=== PATIENT | male | born 1955 | race Caucasian/White ===

== ENCOUNTER 2016-05-24 15:29 | Emergency (ER) | payer MEDICAID, OTHER ==
[~2016-05-24] VITALS: Ht 190.5 cm; Wt 81.8 kg
[~2016-05-24 15:29] MED LIST: DULO30C PO; HYDR50CA PO; LACT1TAB10 PO; LORA-303 PO; MULT-1007 PO; NICO2GUM BC; PAN PO; SODI30SP2 NS; SYN.1T2 PO; [UNRECOGNIZED DRUG - CODE] PO; [UNRECOGNIZED DRUG - CODE] PO; [UNRECOGNIZED DRUG - CODE] TOP
[2016-05-24 15:32] VITALS: BP 120/71; PULSE 68; RESP 20; O2SAT 96
--- NOTE | 2016-05-24 15:44 | ED.REPORT ---
HPI-Psychiatric Illness Date of Service May 24, 2016 ED Provider: Obdulio Chew DO A homeless 60 year old male with a history of suicidal ideation, schizophrenia, hepatitis C, anxiety, alcohol abuse, and low potassium and frequent ED visits presents to the ED complaining of depression and suicidal ideation. The pt has been off of his antidepressants for one week. He ran out recently and "didn't get around to refilling it." The pt states that his depression has worsened significantly since he has been off of his antidepressants and "hasn't been functioning or taking care of himself." He is requesting hospitalization to stabilize his situation. The pt also mentions that he is concerned about his electrolytes due to abnormal heart rhythms. He denies chest pain. The pt has a multitude of ED visits this month between [facility] and other hospitals. He has been seen daily for the last three days for the same complaints and discharged in stable condition. The pt does not have a psychiatrist. Nursing Notes Stated Complaint: MENTAL HEALTH Chief Complaint: Psychiatric Complaint Nursing Notes Reviewed: Yes Allergies: Coded Allergies: Sulfa (Sulfonamide Antibiotics) (Verified Allergy, Severe, 03/20/16) Scheduled Ascorbic Acid (C-500) 500 Mg Tablet 500 MG PO DAILYWM Clotrimazole-Expunged Drug, Do Not Renew! (Lotrimin 1%-Expunged Drug, Do Not Renew!) 30 Ml Bottle 30 APPL TOP BID Duloxetine-Expunged Drug, Do Not Renew! (Cymbalta-Expunged Drug, Do Not Renew!) 30 Mg Capsule.dr 30 MG PO DAILY LACTO ACID-Expunged Drug, Do Not Renew! (ACIDOPHILUS-Expunged Drug, Do Not Renew !) 1 Each Tablet 1 EACH PO TIDWM Levothyroxine-Expunged Drug, Do Not Renew! (Synthroid-Expunged Drug, Do Not Renew!) 100 Mcg Tablet 0.1 MG PO DAILYAC 0.1 MG = 100 MCG Lipase/Amylase/Protease-Expunged, Do Not Tee (Pancrease-Expunged, Do Not Renew! ) 1 Ea Cap 1 EA PO BIDBL Lorazepam-Expunged Drug, Do Not Renew! (Lorazepam-Expunged Drug, Do Not Renew!) 1 Mg Tablet 1 MG PO Q4HP Multivitamin (Multi-Vitamin Daily) 1 Each Tablet 1 EACH PO DAILY NICOTINE POLAC-Expunged Drug, Do Not Renew! (NICOTINE POLAC-Expunged Drug, Do Not Renew!) 2 Mg Gum 2 MG BC PRN Scheduled PRN Hydroxyzine Kylie-Expunged Drug, Do Not Renew! (Vistaril-Expunged Drug, Do Not Renew!) 50 Mg Capsule 50 MG PO TID PRN PRN Loperamide-Expunged Drug, Do Not Renew! (Imodium-Expunged Drug, Do Not Renew!) 2 Mg Cap 2 MG PO UD PRN PRN Miscellaneous Medications Sodium Chloride-Expunged Drug, Do Not Renew! (Saline Nasal [place]-Expunged Drug, Do Not Tee) 45 Ml [place] 45 ML NS General Time Seen by MD: 15:44 Chief Complaint Suicidal ideation Hx Obtained From: Patient Arrived By: Ambulance Onset Occurred: More than a week ago... Symptom Duration: Since onset Recent Healthcare: Recent doctor visit, Recent hospitalization Similar Sx Previous: Yes Risk-Psychiatric Illness Suicide Risk Stratification Suicide Risk Factors - Adult: : Prior psych admissionNo: Substance abuse RF Statements: Risk factors reviewed Past Medical History Past Medical History depression with suicidal ideations - with prior hospitalizations generalized anxiety alcohol abuse duodenal ulcer schizophrenia low potassium arthritis hypothyroidism Reports: Mental illness Reports: Depression, Thyroid disease Past Surgical History ulcer repair Smoking History Current Every Day Smoker Social History Drug Use: Denies drug use Other Social History: Poor social support, Homeless Occupation [place] Ambulatory Status Independent Review of Systems Review of Systems Note: abnormal heart rate Constitutional: Denies: Fever Cardiovascular: Denies: Chest pain GI: Denies: Abdominal pain, Nausea Skin: Denies Rash Psychiatric: Reports: Depression, Suicidal ideation Complete sys rev & neg: except as marked. Physical Exam Initial Vital Signs Vital Signs (First) Date Time Temp Pulse Resp B/P Pulse Ox O2 Delivery O2 Flow Rate FiO2 05/24/16 15:32 36.4 68 20 120/71 96 Room Air Initial VS: Reviewed General/Constitutional: Awake, Alert Neurologic: Oriented X3, Speech NL, No motor deficits, No sensory deficits Psychiatric: Affect NL, Mood NL Head / Eyes: Atraumatic, Normocephalic, PERRL, EOMI ENT: Atraumatic, Airway patent, Mucous membranes moist Respiratory / Chest: Atraumatic, Breath sounds NL, Breath sounds = bilat, No respiratory distress Cardiovascular: Heart rate NL, Heart sounds NL occasional irregular beats Abdomen: Atraumatic, Soft, Non-tender no hepatomegaly Skin: Atraumatic, Color NL, No rash, Warm, Dry Neck: Atraumatic, Supple, Full range of motion Back: Atraumatic, Full range of motion Upper Extremity / MS: Atraumatic, Full range of motion Lower Extremity / Pelvis / MS: Atraumatic, Full range of motion Interpretation & Diagnostics Lab Results Interpretation Result Diagram: 05/24/16 1621 05/24/16 1621 Test 05/24/16 16:16 05/24/16 16:21 05/24/16 16:38 Hold Urine Received (Received) White Blood Count 5.5th/mm3 (3.8-10.1) Red Blood Count 5.05mil/mm3 (4.40-5.80) Hemoglobin 15.1g/dL (13.8-17.2) Hematocrit 43.0% (41.0-50.0) Mean Corpuscular Volume 85.1fL (81-100) Mean Corpuscular Hemoglobin 29.9pg (27.0-35.0) Mean Corpuscular Hemoglobin Concent 35.1% (32.0-37.0) Red Cell Distribution Width 12.5% (12.3-15.4) Platelet Count 185bil/L (150-400) Neutrophils (%) (Auto) 72.8% (40-74) Lymphocytes (%) (Auto) 16.7% (14-46) Monocytes (%) (Auto) 8.4% (4-12) Eosinophils (%) (Auto) 1.5% (0-5) Basophils (%) (Auto) 0.6% (0-3) Sodium Level 142mEq/L (134-144) Potassium Level 3.6mEq/L (3.5-5.2) Chloride Level 102mEq/L (97-108) Carbon Dioxide Level 22mmol/L (18-29) Blood Urea Nitrogen 13mg/dL (8-27) Creatinine 0.80mg/dL (0.76-1.27) Estimat Glomerular Filtration Rate 105mL/min (>59) Glucose Level 111mg/dL (60-99) Calcium Level 8.9mg/dL (8.5-10.1) Magnesium Level 2.2mg/dL (1.6-2.6) Total Bilirubin 1.9mg/dL (0.0-1.2) Aspartate Amino Transf (AST/SGOT) 27U/L (0-50) Alanine Aminotransferase (ALT/SGPT) 13U/L (0-44) Alkaline Phosphatase 66U/L (25-160) Troponin T < 0.010ug/L (0.0-0.011) Total Protein 7.4g/dL (6.4-8.4) Albumin 4.5g/dL (3.4-5.0) Hold Purple Top Tube Received (Received) Hold Blue Top Tube Received (Received) Hold [place] Top Tube Received (Received) Hold Ma Top Tube Received (Received) ECG Interpretation ECG Interpretation: normal sinus rhythm with a rate of 74 inv T wave in lead AVL and lead 1 no previous available for comparison Time: 18:19 Interpreted by: ED physician Re-Eval/Medical Decision Med Decision/Clinical Course 60-year-old male with a history of 48 ER visits in the past 12 months for suicidal ideation who was just evaluated at [facility] yesterday and discharged for malingering presents complaining of palpitations, joint pain from arthritis, and vague suicidal ideations. 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 He is known to malinger because he is homeless and wanting a place to stay. I reviewed his records with our dialysis social worker and we feel that he is fit for discharge. He has all the resources for crisis centers and he has a disability case manager who can help him. Patient is agreeable to this plan. Source of Hx: Old records Re-Evaluation/Progress : Time of Eval: 17:32 Patient Status: Condition improved Re-Evaluation/Progress Note: Pt rechecked, who is resting. Lab work, diagnosis, and the plan for discharge were discussed. The pt understands and agrees with the plan. All questions are addressed at this time. Counseled Regarding: Diagnosis, Need for follow-up, When/why to return to ED Discharge & Departure Impression: Primary Impression: Palpitations Additional Impressions: History of schizophrenia Homelessness Ruled Out: Acute coronary syndrome Disposition: AGAINST MEDICAL ADVICE Discharge Condition All VS Reviewed: Yes Condition: Stable Additional Instructions: You lab work and EKG today were reassuring. Contact your case packer and sealer and [facility] for psychiatric follow up. I am prescribing you a small supply of her antidepressant medicines he can get it started again. He will need to get another prescription from your psychiatrist/primary care provider to continue this medication Return to the emergency department if you develop any new or concerning symptoms. You may buy Tylenol [id number] for joint pain Referrals: [facility] (PCP) [facility] Jmibyolette Attestation Portions of this note were transcribed by Haseeb Coburn I, Dr. Chew personally performed the history, physical exam and medical decision-making; I reviewed and confirmed the accuracy of the information in the transcribed note. Signed by: Krystina Murrell, 05/24/16 and 17:34. copies to: [facility] ; [facility]; [facility] Obdulio Chew DO May 24, 2016 15:44 HASEEB COBURN May 24, 2016 16:58
[2016-05-24 16:30] LABS: BASOPHILS % (AUTO) 0.6 % (0-3); EOSINOPHILS % (AUTO) 1.5 % (0-5); MONOCYTES % (AUTO) 8.4 % (4-12); Mean Corpuscular Hemoglobin 29.9 pg (27.0-35.0); Mean Corpuscular Volume 85.1 fL (81-100); NEUTROPHILS % (AUTO) 72.8 % (40-74); Platelet Count 185 bil/L (150-400)
[2016-05-24 16:55] LABS: TROPONIN T < 0.010 ug/L (0.0-0.011)
[2016-05-24 17:04] LABS: Magnesium 2.2 mg/dL (1.6-2.6)
[2016-05-24] MEDS ORDERED: HYDR50CA PO (17:43)
[2016-05-24] MEDS ORDERED: MIRT30TA6 PO (17:43)
== END 2016-05-24 17:51 | disposition left against medical advice (07) ==
LOC: SED 15:29
DX: R00.2 Palpitations (principal); F20.9 Schizophrenia, unspecified; R45.851 Suicidal ideations; E07.9 Disorder of thyroid, unspecified; F10.10 Alcohol abuse, uncomplicated; E87.6 Hypokalemia; M19.90 Unspecified osteoarthritis, unspecified site; F17.200 Nicotine dependence, unspecified, uncomplicated; Z59.0 Homelessness; Z91.5 Personal history of self-harm; Z86.19 Personal history of other infectious and parasitic diseases; Z86.59 Personal history of other mental and behavioral disorders; Z88.2 Allergy status to sulfonamides
CPT/HCPCS: 36415; 80053; 83735; 84484; 85025; 93005; 99284; Q0177

== ENCOUNTER 2016-05-25 01:48 | Emergency (ER) | payer OTHER ==
[~2016-05-25] VITALS: Ht 190.5 cm; Wt 79.5 kg
[~2016-05-25 01:48] MED LIST changes: +MIRT30TA6 PO
[2016-05-25 01:56] VITALS: BP 150/86; PULSE 85; RESP 18; O2SAT 97
--- NOTE | 2016-05-25 02:05 | ED.REPORT ---
HPI-General Illness Date of Service May 25, 2016 ED Provider: Robby Loyd MD A 60 year old homeless male with a history of frequent ED visits, suicidal ideation, schizophrenia, hepatitis C, anxiety, alcohol abuse, and hypokalemia presents to the ED seeking admission at [facility]. Patient was seen in the ED earlier this evening for worsening depression and suicidal ideation. He met with the ED social organization professor and was cleared for discharge. Patient was seen at [facility] yesterday for heart palpitations and discharged in good condition. He has been seen in the ED 42 times in the past 12 months for suicidal ideation. Patient states that he is currently "much sicker" than his earlier visits. He reports that he is experiencing insomnia, weakness, confusion and disorientation. He denies changes in eating habits. He denies any EtOH use tonight, but admits to excessive consumption earlier this week. Nursing Notes Stated Complaint: PSYCH EVAL Chief Complaint: Psychiatric Complaint Nursing Notes Reviewed: Yes Allergies: Coded Allergies: Sulfa (Sulfonamide Antibiotics) (Verified Allergy, Severe, 05/25/16) Scheduled Ascorbic Acid (C-500) 500 Mg Tablet 500 MG PO DAILYWM Clotrimazole-Expunged Drug, Do Not Renew! (Lotrimin 1%-Expunged Drug, Do Not Renew!) 30 Ml Bottle 30 APPL TOP BID Duloxetine-Expunged Drug, Do Not Renew! (Cymbalta-Expunged Drug, Do Not Renew!) 30 Mg Capsule.dr 30 MG PO DAILY LACTO ACID-Expunged Drug, Do Not Renew! (ACIDOPHILUS-Expunged Drug, Do Not Renew !) 1 Each Tablet 1 EACH PO TIDWM Levothyroxine-Expunged Drug, Do Not Renew! (Synthroid-Expunged Drug, Do Not Renew!) 100 Mcg Tablet 0.1 MG PO DAILYAC 0.1 MG = 100 MCG Lipase/Amylase/Protease-Expunged, Do Not Tee (Pancrease-Expunged, Do Not Renew! ) 1 Ea Cap 1 EA PO BIDBL Lorazepam-Expunged Drug, Do Not Renew! (Lorazepam-Expunged Drug, Do Not Renew!) 1 Mg Tablet 1 MG PO Q4HP Mirtazapine (Mirtazapine) 30 Mg Tablet 30 MG PO HS Multivitamin (Multi-Vitamin Daily) 1 Each Tablet 1 EACH PO DAILY NICOTINE POLAC-Expunged Drug, Do Not Renew! (NICOTINE POLAC-Expunged Drug, Do Not Renew!) 2 Mg Gum 2 MG BC PRN Scheduled PRN Hydroxyzine Kylie-Expunged Drug, Do Not Renew! (Vistaril-Expunged Drug, Do Not Renew!) 50 Mg Capsule 50 MG PO TID PRN PRN Hydroxyzine Pamoate (Vistaril) 50 Mg Capsule 50 MG PO TID PRN PRN For Anxiety Loperamide-Expunged Drug, Do Not Renew! (Imodium-Expunged Drug, Do Not Renew!) 2 Mg Cap 2 MG PO UD PRN PRN Miscellaneous Medications Sodium Chloride-Expunged Drug, Do Not Renew! (Saline Nasal [place]-Expunged Drug, Do Not Tee) 45 Ml [place] 45 ML NS General Time Seen by MD: 02:02 Chief Complaint Other (Suicidal Ideation) Hx Obtained From: Patient Arrived By: Walk-in Sudden in Onset?: No Onset Occurred: 1 - 4 hours ago Symptom Duration: Since onset Associated with: Reports: Weakness Additional Notes: Insomnia Confusion Pertinent Negative: Pt denies other symptoms Recent Healthcare: Recent doctor visit, Recent hospitalization Past Medical History Past Medical History depression with suicidal ideations - with prior hospitalizations generalized anxiety alcohol abuse duodenal ulcer schizophrenia low potassium arthritis hypothyroidism Reports: Mental illness Reports: Depression, Thyroid disease Past Surgical History ulcer repair Smoking History Current Every Day Smoker Social History Drug Use: Denies drug use Other Social History: Poor social support, Homeless Occupation Ambulatory Status Independent Review of Systems Denies changes in eating habits Full Review of Systems Constitutional: Denies: Chills, Fever Respiratory: Denies: Shortness of breath Cardiovascular: Denies: Chest pain GI: Denies: Abdominal pain, Nausea, Vomiting Neurologic: Denies: Change LOC Psychiatric: Reports: Confusion, Depression, Insomnia, Suicidal ideation Complete sys rev & neg: except as marked. Physical Exam Vital Signs Vital Signs Date Time Temp Pulse Resp B/P Pulse Ox O2 Delivery O2 Flow Rate FiO2 05/25/16 02:26 36.4 85 18 150/86 97 Room Air 05/25/16 01:56 36.4 85 18 150/86 97 Room Air Initial VS: Reviewed Head / Eyes: Atraumatic, Normocephalic, PERRL Skin: Warm, Dry, No cyanosis General/Constitutional: Awake, Alert, No acute distress Respiratory / Chest: Atraumatic, No respiratory distress Abdomen: Atraumatic Upper Extremities Upper Extremity / MS: Atraumatic, Neurologic intact, Vascular intact Lower Extremity / Pelvis / MS: Atraumatic, Neurologic intact, Vascular intact Abnormal Mood/Affect: Positive: Flat affect PSYCH: Patient makes poor eye contact Re-Eval/Medical Decision Med Decision/Clinical Course One of multiple visits for this 60-year-old with chronic schizophrenia, homelessness, substance abuse, and a pattern of malingering in effort to deal with his homelessness. He presents today after presenting here yesterday, after leaving [facility] yesterday and coming here directly after discharge. Multiple assessments have been made, including by social work earlier today, and a consensus has been reached that his presentations are efforts to deal with his homelessness, that inpatient hospitalization is probably not helpful, but counterproductive. He consistently sabotage his efforts to help him and make arrangements for alternative care. He has no acute medical issues and no acute psychiatric issues at this time. He is discharged for follow-up with his usual source of medical care. He would be considered tomorrow at crisis resp[facility], once the administrative staff have convened, as he has previously been placed on the special consideration less, due to uncooperative and combative behavior at the facility. Time of Eval: 02:13 Re-Evaluation/Progress Note: Patient is rechecked. He is informed of the consult. Patient agrees to wait in the waiting room for the [facility] in the morning. He understands and agrees with the plan to discharge. Consultation : Call Returned at: 02:11 Senior Asic Design Engineer: Agrees with eval, Agrees with plan Note: Crisis is unable to see the patient tonight; will evaluate at 1100 Counseled Regarding: Diagnosis, Lab results, Need for follow-up, When/why to return to ED Discharge & Departure Shift Change Sign-Out Response to Therapy: Unchanged Primary Impression: Homelessness Additional Impressions: History of schizophrenia Depression Depression Type: unspecified Qualified Code: F32.9 - Major depressive disorder, single episode, unspecified Substance abuse Disposition: Home Discharge Condition All VS Reviewed: Yes Condition: Stable Additional Instructions: Call crisis tomorrow morning at about 10 AM for consideration for placement. That number is [phone]. Take your prescribed medicines. Fill your prescription from yesterday. Follow-up at the [place] [facility]. Referrals: [facility] (PCP) [facility] Scribe Attestation Portions of this note were transcribed by Cecilia Dotson. I, Dr. Loyd personally performed the history, physical exam and medical decision-making; I reviewed and confirmed the accuracy of the information in the transcribed note. Signed by: Krystina Dejesus, 05/25/16 0230. copies to: [facility] Robby Loyd MD May 25, 2016 02:05 CECILIA DOTSON May 25, 2016 02:17
[2016-05-25 02:26] VITALS: BP 150/86; PULSE 85; RESP 18; O2SAT 97
== END 2016-05-25 02:35 | disposition home or self-care (01) ==
LOC: SED 01:48
DX: F32.9 Major depressive disorder, single episode, unspecified (principal); F19.10 Other psychoactive substance abuse, uncomplicated; F17.200 Nicotine dependence, unspecified, uncomplicated; Z86.59 Personal history of other mental and behavioral disorders; Z91.5 Personal history of self-harm; Z88.2 Allergy status to sulfonamides

== ENCOUNTER 2016-06-14 20:20 | Emergency (ER) | payer OTHER ==
[2016-06-14 20:31] VITALS: BP 124/70; PULSE 71; RESP 20; O2SAT 97
[2016-06-14 20:34] VITALS: BP 124/70; PULSE 71; RESP 20; O2SAT 97
--- NOTE | 2016-06-14 21:32 | ED.REPORT ---
HPI-General Illness Date of Service Jun 14, 2016 ED Provider: Dr. Robby Loyd MD A 60 year old homeless male with a history of frequent ED visits, suicidal ideation, schizophrenia, hepatitis C, anxiety, alcohol abuse, and hypokalemia presents to the ED via EMS complaining of worsening depression that began earlier this evening. He is currently seeking referral to a crisis center. He reports that he has not been taking his mirtazapine for the past few weeks, but recently obtained a prescription and has taken a first dose. Patient has had numerous visits to the ED in the past 3 months for worsening depression, suicidal ideation and homelessness. Nursing Notes Stated Complaint: DEPRESSED Chief Complaint: Psychiatric Complaint Nursing Notes Reviewed: Yes Allergies: Coded Allergies: Sulfa (Sulfonamide Antibiotics) (Verified Allergy, Severe, 05/25/16) Scheduled Ascorbic Acid (C-500) 500 Mg Tablet 500 MG PO DAILYWM Clotrimazole-Expunged Drug, Do Not Renew! (Lotrimin 1%-Expunged Drug, Do Not Renew!) 30 Ml Bottle 30 APPL TOP BID Duloxetine-Expunged Drug, Do Not Renew! (Cymbalta-Expunged Drug, Do Not Renew!) 30 Mg Capsule.dr 30 MG PO DAILY LACTO ACID-Expunged Drug, Do Not Renew! (ACIDOPHILUS-Expunged Drug, Do Not Renew !) 1 Each Tablet 1 EACH PO TIDWM Levothyroxine (Synthroid) 200 Mcg Tablet 200 MCG PO DAILY Levothyroxine-Expunged Drug, Do Not Renew! (Synthroid-Expunged Drug, Do Not Renew!) 100 Mcg Tablet 0.1 MG PO DAILYAC 0.1 MG = 100 MCG Lipase/Amylase/Protease-Expunged, Do Not Tee (Pancrease-Expunged, Do Not Renew! ) 1 Ea Cap 1 EA PO BIDBL Lorazepam-Expunged Drug, Do Not Renew! (Lorazepam-Expunged Drug, Do Not Renew!) 1 Mg Tablet 1 MG PO Q4HP Mirtazapine (Mirtazapine) 30 Mg Tablet 30 MG PO HS Mirtazapine (Mirtazapine) 30 Mg Tablet 30 MG PO HS Multivitamin (Multi-Vitamin Daily) 1 Each Tablet 1 EACH PO DAILY NICOTINE POLAC-Expunged Drug, Do Not Renew! (NICOTINE POLAC-Expunged Drug, Do Not Renew!) 2 Mg Gum 2 MG BC PRN Scheduled PRN Hydroxyzine Kylie-Expunged Drug, Do Not Renew! (Vistaril-Expunged Drug, Do Not Renew!) 50 Mg Capsule 50 MG PO TID PRN PRN Hydroxyzine Pamoate (Vistaril) 50 Mg Capsule 50 MG PO TID PRN PRN For Anxiety Loperamide-Expunged Drug, Do Not Renew! (Imodium-Expunged Drug, Do Not Renew!) 2 Mg Cap 2 MG PO UD PRN PRN Miscellaneous Medications Sodium Chloride-Expunged Drug, Do Not Renew! (Saline Nasal [place]-Expunged Drug, Do Not Tee) 45 Ml [place] 45 ML NS General Time Seen by MD: 21:32 Chief Complaint Other (Depression ) Hx Obtained From: Patient Arrived By: Ambulance Sudden in Onset?: No Onset Occurred: 9 - 12 hours ago Symptom Duration: Since onset Pertinent Negative: Pt denies other symptoms Recent Healthcare: Recent doctor visit, Recent hospitalization Similar Sx Previous: Yes Past Medical History Past Medical History Depression with suicidal ideations - with prior hospitalizations Generalized anxiety Alcohol abuse Duodenal ulcer Schizophrenia Hypokalemia Arthritis Hypothyroidism Reports: Mental illness Reports: Depression, Thyroid disease Past Surgical History ulcer repair Smoking History Current Every Day Smoker Social History Drug Use: Denies drug use Other Social History: Poor social support, Homeless Occupation [place] Ambulatory Status Independent Review of Systems Full Review of Systems Constitutional: Denies: Chills, Fever Respiratory: Denies: Shortness of breath Cardiovascular: Denies: Chest pain GI: Denies: Abdominal pain, Nausea, Vomiting Neurologic: Denies: Change LOC Psychiatric: Reports: Depression Complete sys rev & neg: except as marked. Physical Exam Vital Signs Vital Signs Date Time Temp Pulse Resp B/P Pulse Ox O2 Delivery O2 Flow Rate FiO2 06/15/16 03:22 67 16 144/77 100 Room Air 06/14/16 20:34 36.8 71 20 124/70 97 Room Air 06/14/16 20:31 36.8 71 20 124/70 97 Room Air Initial VS: Reviewed Skin: Warm, Dry, No cyanosis General/Constitutional: Awake, Alert, No acute distress Head / Eyes: Atraumatic, Normocephalic Neck: Atraumatic, Supple Respiratory / Chest: Atraumatic, No respiratory distress Abdomen: Atraumatic Upper Extremities Upper Extremity / MS: Atraumatic, Neurologic intact, Vascular intact Lower Extremity / Pelvis / MS: Atraumatic, Neurologic intact, Vascular intact Psychiatric: Not suicidal (Not actively suicidal ), Not homicidal Abnormal Mood/Affect: Positive: Flat affect PSYCH: Behavior is at baseline Interpretation & Diagnostics Lab Results Interpretation Test 06/14/16 22:40 Hold Urine Received (Received) Re-Eval/Medical Decision Med Decision/Clinical Course Chronically depressed and schizophrenic man with additional issues of homelessness, intermittent alcohol abuse, noncompliance, presents with vague suicidality but no fixed plan. His standard answer is that he plans to buy a gun, but he has no access to weapons, and is a prohibited person. He is requesting admission to [facility]. He has been there before. His situation presented to their triage worker, and they will consider admission upon receipt of medical records from [facility]. Records forwarded. Unfortunately, they have responded negatively and are unable to take care of him at crisis in [place]. Consensus among various caregivers including social service here psychiatry here, and in the mental health community is that the is not benefited by inpatient hospitalization, is generally uncooperative with efforts to treat him, and is primarily concerned with finding a place to stay off the street. He is unmotivated to participate in therapeutic efforts. There being no therapeutic goal at the moment, and with no active suicidality acknowledged, he is discharged in stable condition. Time of Eval: 03:00 Patient Status: Condition improved Re-Evaluation/Progress Note: Patient is rechecked. [facility] will not accept the patient. He is informed of the consult and the plan to discharge. Patient understands and agrees with the treatment plan to discharge. 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: Agrees with eval, Agrees with plan Note: [facility] Counseled Regarding: Diagnosis, Lab results, Need for follow-up, When/why to return to ED Discharge & Departure Primary Impression: Depression Depression Type: unspecified Qualified Code: F32.9 - Major depressive disorder, single episode, unspecified Additional Impressions: Suicidal ideations History of schizophrenia Hepatitis C Viral hepatitis chronicity: unspecified Hepatic coma status: without hepatic coma Qualified Code: B19.20 - Unspecified viral hepatitis C without hepatic coma Disposition: Home Discharge Condition All VS Reviewed: Yes Condition: Stable Patient Instructions: Mirtazapine (By mouth) Additional Instructions: Follow-up at the [place] [facility]. Present at the [place] [facility] if you continue to have difficulties. Referrals: [facility] (PCP) Krystina Attestation Portions of this note were transcribed by Cecilia Dotson. I, Dr. Loyd personally performed the history, physical exam and medical decision-making; I reviewed and confirmed the accuracy of the information in the transcribed note. Signed by: Krystina Dejesus, 06/15/16 0304. copies to: [facility] Robby Loyd MD Jun 14, 2016 21:32 CECILIA DOTSON Jun 14, 2016 21:39
[2016-06-15] MEDS ORDERED: MIRT30TA6 PO (02:58)
[2016-06-15 03:22] VITALS: BP 144/77; PULSE 67; RESP 16; O2SAT 100
[2016-06-15] MEDS ORDERED: LEVO200T PO (03:35)
== END 2016-06-15 03:44 | disposition home or self-care (01) ==
LOC: SED 20:20
DX: F32.9 Major depressive disorder, single episode, unspecified (principal); B19.20 Unspecified viral hepatitis C without hepatic coma; R45.851 Suicidal ideations; F20.9 Schizophrenia, unspecified; E03.9 Hypothyroidism, unspecified; F17.200 Nicotine dependence, unspecified, uncomplicated; Z59.0 Homelessness; Z88.2 Allergy status to sulfonamides

== ENCOUNTER 2016-06-25 13:38 | Emergency (ER) | payer OTHER ==
[~2016-06-25 13:38] MED LIST changes: +LEVO200T PO
[2016-06-25 14:08] VITALS: BP 137/78; PULSE 83; RESP 20; O2SAT 100
--- NOTE | 2016-06-25 14:41 | ED.REPORT ---
HPI-Psychiatric Illness Date of Service Jun 25, 2016 ED Provider: History of Present Illness: off meds for a long time, then states it has been 2 days. history is poor. [facility], states wants to be hospilatized for someone to take care of him. Requesting mental health evualation At discharge he states he has "enough" mirtazepine Nursing Notes Chief Complaint: Psychiatric Complaint Nursing Notes Reviewed: Yes Allergies: Coded Allergies: Sulfa (Sulfonamide Antibiotics) (Verified Allergy, Severe, 06/25/16) Scheduled Ascorbic Acid (C-500) 500 Mg Tablet 500 MG PO DAILYWM Clotrimazole-Expunged Drug, Do Not Renew! (Lotrimin 1%-Expunged Drug, Do Not Renew!) 30 Ml Bottle 30 APPL TOP BID Duloxetine-Expunged Drug, Do Not Renew! (Cymbalta-Expunged Drug, Do Not Renew!) 30 Mg Capsule.dr 30 MG PO DAILY LACTO ACID-Expunged Drug, Do Not Renew! (ACIDOPHILUS-Expunged Drug, Do Not Renew !) 1 Each Tablet 1 EACH PO TIDWM Levothyroxine (Synthroid) 200 Mcg Tablet 200 MCG PO DAILY Levothyroxine-Expunged Drug, Do Not Renew! (Synthroid-Expunged Drug, Do Not Renew!) 100 Mcg Tablet 0.1 MG PO DAILYAC 0.1 MG = 100 MCG Lipase/Amylase/Protease-Expunged, Do Not Tee (Pancrease-Expunged, Do Not Renew! ) 1 Ea Cap 1 EA PO BIDBL Lorazepam-Expunged Drug, Do Not Renew! (Lorazepam-Expunged Drug, Do Not Renew!) 1 Mg Tablet 1 MG PO Q4HP Mirtazapine (Mirtazapine) 30 Mg Tablet 30 MG PO HS Mirtazapine (Mirtazapine) 30 Mg Tablet 30 MG PO HS Multivitamin (Multi-Vitamin Daily) 1 Each Tablet 1 EACH PO DAILY NICOTINE POLAC-Expunged Drug, Do Not Renew! (NICOTINE POLAC-Expunged Drug, Do Not Renew!) 2 Mg Gum 2 MG BC PRN Scheduled PRN Hydroxyzine Kylie-Expunged Drug, Do Not Renew! (Vistaril-Expunged Drug, Do Not Renew!) 50 Mg Capsule 50 MG PO TID PRN PRN Hydroxyzine Pamoate (Vistaril) 50 Mg Capsule 50 MG PO TID PRN PRN For Anxiety Loperamide-Expunged Drug, Do Not Renew! (Imodium-Expunged Drug, Do Not Renew!) 2 Mg Cap 2 MG PO UD PRN PRN Miscellaneous Medications Sodium Chloride-Expunged Drug, Do Not Renew! (Saline Nasal [place]-Expunged Drug, Do Not Tee) 45 Ml [place] 45 ML NS General Time Seen by MD: 14:39 Chief Complaint Other (homeless) Hx Obtained From: Patient Risk-Psychiatric Illness Suicide Risk Stratification Suicide Risk Factors - Adult: : Family Hx of Suicide (dad): Previous attempt ( when he was young was a cutter): Prior psych admission (in early s): Substance abuseNo: Access to firearms, Alcohol use, Close associate suicide RF Statements: Risk factors reviewed Past Medical History Past Medical History Notes: homeless 06/25/2016 Past Medical History Depression with suicidal ideations - with prior hospitalizations Generalized anxiety Alcohol abuse Duodenal ulcer Schizophrenia Hypokalemia Arthritis Hypothyroidism Reports: Mental illness Reports: Depression, Thyroid disease Past Surgical History ulcer repair Smoking History Current Every Day Smoker Social History Drug Use: Denies drug use Other Social History: Poor social support, Homeless Occupation , homeless 06/25/2016 Ambulatory Status Independent Review of Systems Basic Review of Systems Eyes: Vision NL, No discharge Allergy / Immune: No allergy Physical Exam Initial Vital Signs Vital Signs (First) Date Time Temp Pulse Resp B/P Pulse Ox O2 Delivery O2 Flow Rate FiO2 06/25/16 14:08 36.7 83 20 137/78 100 Room Air Initial VS: Reviewed, Vital signs normal Head / Eyes: Atraumatic, Normocephalic, PERRL ENT: Mucous membranes moist, Conjunctiva normal, No scleral icterus Neck: Supple, Non-tender, Full range of motion Respiratory: Breath sounds normal, Clear to auscultation, No respiratory distress Cardiovascular: Regular rate & rhythm, Heart sounds normal, Intact distal pulses Abdomen / GI: Soft, Non-tender, No guarding, No rebound, No distention Back: No CVA tenderness Lymphatic: No lymphadenopathy Extremities: Vascular intact, Neuro intact, No swelling, No tenderness Skin: Warm, Dry, No cyanosis General/Constitutional: Awake, Alert, No acute distress Appearance / Presentation: Positive: Appears older than age Neurologic: Oriented X3, Speech NL, No motor deficits Psychiatric: Affect NL, Mood NL, Not suicidal Abnormal Mood/Affect: Positive: Flat affect ENT: Atraumatic, Airway patent, Mucous membranes moist, Pharynx NL Respiratory / Chest: Atraumatic, Breath sounds NL, Breath sounds = bilat, No respiratory distress Cardiovascular: Heart rate NL, Regular rhythm, Heart sounds NL, No gallop Abdomen: Atraumatic, Soft, Non-tender, McBurney's non-tender Interpretation & Diagnostics Lab Results Interpretation Result Diagram: 06/25/16 1313 06/25/16 1313 Test 06/25/16 13:13 06/25/16 17:28 White Blood Count 7.7th/mm3 (3.8-10.1) Red Blood Count 4.03mil/mm3 (4.40-5.80) Hemoglobin 11.6g/dL (13.8-17.2) Hematocrit 35.1% (41.0-50.0) Mean Corpuscular Volume 87.1fL (81-100) Mean Corpuscular Hemoglobin 28.8pg (27.0-35.0) Mean Corpuscular Hemoglobin Concent 33.0% (32.0-37.0) Red Cell Distribution Width 13.7% (12.3-15.4) Platelet Count 360bil/L (150-400) Neutrophils (%) (Auto) 56.1% (40-74) Lymphocytes (%) (Auto) 33.5% (14-46) Monocytes (%) (Auto) 7.6% (4-12) Eosinophils (%) (Auto) 1.4% (0-5) Basophils (%) (Auto) 1.3% (0-3) Sodium Level 131mEq/L (134-144) Potassium Level 3.9mEq/L (3.5-5.2) Chloride Level 94mEq/L (97-108) Carbon Dioxide Level 24mmol/L (18-29) Blood Urea Nitrogen 18mg/dL (8-27) Creatinine 0.76mg/dL (0.76-1.27) Estimat Glomerular Filtration Rate 111mL/min (>59) Glucose Level 151mg/dL (60-99) Calcium Level 8.9mg/dL (8.5-10.1) Total Bilirubin 0.3mg/dL (0.0-1.2) Aspartate Amino Transf (AST/SGOT) 28U/L (0-50) Alanine Aminotransferase (ALT/SGPT) 22U/L (0-44) Alkaline Phosphatase 54U/L (25-160) Total Protein 7.6g/dL (6.4-8.4) Albumin 4.2g/dL (3.4-5.0) Thyroid Stimulating Hormone (TSH) 3.140uIU/mL (0.450-4.500) Hold Ma Top Tube Received (Received) Alcohol, Quantitative < 10mg/dL (0-10) Hold Urine Received (Received) Lab Results Interpretation: serum etoh less than 10, u tox is negative Re-Eval/Medical Decision Med Decision/Clinical Course 60 year old male with multiple health issues compounded by social issues presents for evualation, 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 [facility] Source of Hx: Old records Summary of Info: patient with 3 page anika report Discharge & Departure Impression: Primary Impression: Acute situational disturbance Additional Instructions: Your labs are normal. You have mirtazepine. You are being provided a prescription for visteral and for tylenol. [facility] your [facility] issue. They will also help you with housing. A list of local resources is provided. Please contact the [facility]. They are [facility] to help. Referrals: [facility] (PCP) EDSupervising Provider for APC: Butch Georges MD, Sue ARNP Jun 25, 2016 14:41
[2016-06-25 15:22] LABS: BASOPHILS % (AUTO) 1.3 % (0-3); EOSINOPHILS % (AUTO) 1.4 % (0-5); MONOCYTES % (AUTO) 7.6 % (4-12); Mean Corpuscular Hemoglobin 28.8 pg (27.0-35.0); Mean Corpuscular Volume 87.1 fL (81-100); NEUTROPHILS % (AUTO) 56.1 % (40-74); Platelet Count 360 bil/L (150-400)
== END 2016-06-25 21:10 ==
LOC: SED 13:38
DX: F43.0 Acute stress reaction (principal); F32.9 Major depressive disorder, single episode, unspecified; E03.9 Hypothyroidism, unspecified; F17.200 Nicotine dependence, unspecified, uncomplicated; Z59.0 Homelessness; Z88.2 Allergy status to sulfonamides
CPT/HCPCS: 36415; 80053; 81002; 84443; 85025; 99284; G0480; Q0177

== ENCOUNTER 2016-07-04 22:12 | Emergency (ER) | payer OTHER ==
[~2016-07-04] VITALS: Ht 190.5 cm; Wt 79.5 kg
[2016-07-04 22:23] VITALS: BP 138/84; PULSE 84; RESP 18; O2SAT 96
--- NOTE | 2016-07-04 22:40 | ED.REPORT ---
HPI-Psychiatric Illness Date of Service Jul 04, 2016 ED Provider: Maximino Garner MD Patient is a homeless 60 year old male with a history of schizophrenia, depression with suicidal ideations, hepatitis C, and alcohol abuse who presents to the ED with increasing depression and suicidal ideations this evening. Patient states that he would commit suicide by purchasing a handgun, however he does not currently own a handgun. Patient reports that his father committed suicide when he was a teenager. Patient states that he tried to commit suicide as a teenager by cutting his arms. The patient states that he stopped taking his mirtazapine (antidepressant) for some time, after he ran out of his prescription. However, he has picked up his prescription and is now taking it again. The patient is currently homeless but was previously living at the [facility]. Patient states that he does not have anywhere to stay tonight. The patient contacted [facility] earlier today and would like to be referred to their facility. Patient admits to drinking alcohol almost daily, last consuming alcohol yesterday. He takes Vistaril for alcohol withdrawals when he does not have access to alcohol. Patient also reports having increased abdominal distention, at an area where he previously had abdominal surgery. He denies any other medical complaints at this time. Patient denies any illicit drug use. Nursing Notes Stated Complaint: DEPRESSION Chief Complaint: Psychiatric Complaint Nursing Notes Reviewed: Yes Allergies: Coded Allergies: Sulfa (Sulfonamide Antibiotics) (Verified Allergy, Severe, 06/25/16) Scheduled Ascorbic Acid (C-500) 500 Mg Tablet 500 MG PO DAILYWM Clotrimazole-Expunged Drug, Do Not Renew! (Lotrimin 1%-Expunged Drug, Do Not Renew!) 30 Ml Bottle 30 APPL TOP BID Duloxetine-Expunged Drug, Do Not Renew! (Cymbalta-Expunged Drug, Do Not Renew!) 30 Mg Capsule.dr 30 MG PO DAILY LACTO ACID-Expunged Drug, Do Not Renew! (ACIDOPHILUS-Expunged Drug, Do Not Renew !) 1 Each Tablet 1 EACH PO TIDWM Levothyroxine (Synthroid) 200 Mcg Tablet 200 MCG PO DAILY Levothyroxine-Expunged Drug, Do Not Renew! (Synthroid-Expunged Drug, Do Not Renew!) 100 Mcg Tablet 0.1 MG PO DAILYAC 0.1 MG = 100 MCG Lipase/Amylase/Protease-Expunged, Do Not Tee (Pancrease-Expunged, Do Not Renew! ) 1 Ea Cap 1 EA PO BIDBL Lorazepam-Expunged Drug, Do Not Renew! (Lorazepam-Expunged Drug, Do Not Renew!) 1 Mg Tablet 1 MG PO Q4HP Mirtazapine (Mirtazapine) 30 Mg Tablet 30 MG PO HS Mirtazapine (Mirtazapine) 30 Mg Tablet 30 MG PO HS Multivitamin (Multi-Vitamin Daily) 1 Each Tablet 1 EACH PO DAILY NICOTINE POLAC-Expunged Drug, Do Not Renew! (NICOTINE POLAC-Expunged Drug, Do Not Renew!) 2 Mg Gum 2 MG BC PRN Scheduled PRN Hydroxyzine Kylie-Expunged Drug, Do Not Renew! (Vistaril-Expunged Drug, Do Not Renew!) 50 Mg Capsule 50 MG PO TID PRN PRN Hydroxyzine Pamoate (Vistaril) 50 Mg Capsule 50 MG PO TID PRN PRN For Anxiety Loperamide-Expunged Drug, Do Not Renew! (Imodium-Expunged Drug, Do Not Renew!) 2 Mg Cap 2 MG PO UD PRN PRN Miscellaneous Medications Sodium Chloride-Expunged Drug, Do Not Renew! (Saline Nasal [place]-Expunged Drug, Do Not Tee) 45 Ml [place] 45 ML NS General Time Seen by MD: 22:36 Chief Complaint Depressed, Suicidal ideation Hx Obtained From: Patient Arrived By: Walk-in Onset Occurred: More than a week ago... Symptom Duration: Since onset Severity: Current: No pain currently Severity: Maximum: No pain Recent Healthcare: Recent doctor visit Similar Sx Previous: Yes Risk-Psychiatric Illness Suicide Risk Stratification Suicide Risk Factors - Adult: : Alcohol use: Family Hx of Suicide: Previous attemptNo: Substance abuse RF Statements: Risk factors reviewed Past Medical History Past Medical History Notes: Frequent ED visits for suicidal ideations and homelessness. Frequently seen at [facility] as well, with prior diagnosis of malingering Past Medical History Depression with suicidal ideations - with prior hospitalizations Generalized anxiety Alcohol abuse Duodenal ulcer Schizophrenia Arthritis Hypothyroidism hepatitis C Reports: Mental illness Reports: Depression, Thyroid disease Past Surgical History ulcer repair Smoking History Current Every Day Smoker Social History Alcohol Use: >5 per day Drug Use: Denies drug use Other Social History: Poor social support, Homeless Occupation [employer], homeless 06/25/2016 Ambulatory Status Independent Review of Systems Constitutional: Denies: Chills, Fever GI: Denies: Diarrhea, Vomiting Psychiatric: Reports: Depression, Suicidal ideation Complete sys rev & neg: except as marked. Physical Exam Initial Vital Signs Vital Signs (First) Date Time Temp Pulse Resp B/P Pulse Ox O2 Delivery O2 Flow Rate FiO2 07/04/16 22:23 36.5 84 18 138/84 96 Room Air Initial VS: Reviewed, Vital signs normal Head / Eyes: Atraumatic, Normocephalic, PERRL ENT: Mucous membranes moist, Conjunctiva normal, No scleral icterus Neck: Supple, Full range of motion Respiratory: Breath sounds normal, Clear to auscultation, No respiratory distress Cardiovascular: Regular rate & rhythm, Heart sounds normal Extremities: Vascular intact, Neuro intact, No swelling Skin: Warm, Dry, No cyanosis General/Constitutional: Awake, Alert, No acute distress Neurologic: Oriented X3, Speech NL, No motor deficits, No sensory deficits Psychiatric: No hallucinations Abnormal Mood/Affect: Positive: Depressed, Flat affect Abnormal Thinking / Perception: Positive: Suicidal, with plan Abdomen: Soft, Non-tender, No palpable mass, No pulsatile mass Organomegaly / Mass / Hernia: Positive: Hernia ventral (very slightly ventral midline hernia) Interpretation & Diagnostics Lab Results Interpretation Result Diagram: 07/04/162 07/04/16 2322 Test 07/04/16 23:22 White Blood Count 9.2th/mm3 (3.8-10.1) Red Blood Count 3.93mil/mm3 (4.40-5.80) Hemoglobin 11.5g/dL (13.8-17.2) Hematocrit 34.1% (41.0-50.0) Mean Corpuscular Volume 86.8fL (81-100) Mean Corpuscular Hemoglobin 29.3pg (27.0-35.0) Mean Corpuscular Hemoglobin Concent 33.7% (32.0-37.0) Red Cell Distribution Width 14.1% (12.3-15.4) Platelet Count 314bil/L (150-400) Neutrophils (%) (Auto) 57.2% (40-74) Lymphocytes (%) (Auto) 32.4% (14-46) Monocytes (%) (Auto) 6.9% (4-12) Eosinophils (%) (Auto) 2.3% (0-5) Basophils (%) (Auto) 1.1% (0-3) Band Neutrophils % 0% (1-5) Sodium Level 132mEq/L (134-144) Potassium Level 3.7mEq/L (3.5-5.2) Chloride Level 98mEq/L (97-108) Carbon Dioxide Level 17mmol/L (18-29) Blood Urea Nitrogen 29mg/dL (8-27) Creatinine 1.57mg/dL (0.76-1.27) Estimat Glomerular Filtration Rate 48mL/min (>59) Glucose Level 113mg/dL (60-99) Calcium Level 8.6mg/dL (8.5-10.1) Magnesium Level 2.2mg/dL (1.6-2.6) Total Bilirubin 0.3mg/dL (0.0-1.2) Aspartate Amino Transf (AST/SGOT) 46U/L (0-50) Alanine Aminotransferase (ALT/SGPT) 38U/L (0-44) Alkaline Phosphatase 64U/L (25-160) Total Protein 7.2g/dL (6.4-8.4) Albumin 4.0g/dL (3.4-5.0) Lipase 33U/L (13-60) Thyroid Stimulating Hormone (TSH) 0.138uIU/mL (0.450-4.500) Free Thyroxine 1.62ng/dL (0.82-1.77) Hold Ma Top Tube Received (Received) Lab Results Interpretation: Mild renal insufficiency. No other significant abnormalities. Re-Eval/Medical Decision Med Decision/Clinical Course 60-year-old homeless male who claims suicidal ideation. There are no beds available at [facility]. Source of Hx: Old records Re-Evaluation/Progress #1: Time of Eval: 23:59 Re-Evaluation/Progress Note: Informed the patient that [facility] does not have a bed. Will allow him to sleep in the ED and will evaluate in the morning. Re-Evaluation/Progress #2: Time of Eval: 05:50 Re-Evaluation/Progress Note: Rechecked the patient. He states that he is still suicidal and that he would like to be admitted to the hospital. Patient will be seen by the UPHOLSTERY ESTIMATOR later today. Consultation : Call Returned at: 23:28 Note: Spoke with [facility] They do not have any beds available at this time. Counseled Regarding: Diagnosis, Lab results Discharge & Departure Shift Change Sign-Out Patient Care Transferred: Yes Discussed Complaint(s): Yes Laboratory Evaluation: Lab evaluation discussed Additonal Information: Awaiting UPHOLSTERY ESTIMATOR Impression: Primary Impression: Suicidal ideations Additional Impression: Major depression Major depression recurrence: recurrent Active/Remission status: currently active Major depression episode severity: moderate Qualified Code: F33.1 - Major depressive disorder, recurrent, moderate Referrals: [facility] (PCP) Care Transferred to: Dr. Chew Care Transferred at: 06:00 Krystina Attestation Portions of this note were transcribed by Dodie Mix. I, Dr. Garner personally performed the history, physical exam and medical decision-making; I reviewed and confirmed the accuracy of the information in the transcribed note. Signed by: Krystina Koroma, 07/05/2016 0553 copies to: [facility] Maximino Garner MD Jul 04, 2016 22:40 Dodie Mix Jul 04, 2016 22:49
[2016-07-04 23:41] LABS: BASOPHILS % (AUTO) 1.1 % (0-3); EOSINOPHILS % (AUTO) 2.3 % (0-5); MONOCYTES % (AUTO) 6.9 % (4-12); Mean Corpuscular Hemoglobin 29.3 pg (27.0-35.0); Mean Corpuscular Volume 86.8 fL (81-100); NEUTROPHILS % (AUTO) 57.2 % (40-74); Platelet Count 314 bil/L (150-400)
[2016-07-05 00:26] LABS: Magnesium 2.2 mg/dL (1.6-2.6)
[2016-07-05 06:36] VITALS: BP 117/60; PULSE 62; RESP 18; O2SAT 97
[2016-07-05] MEDS ORDERED: 0.9% Sodium Chloride 1,000 ML IV ONE ×2 (09:01)
[2016-07-05 12:23] VITALS: BP 117/60; PULSE 62; RESP 18; O2SAT 97
== END 2016-07-05 12:26 | disposition home or self-care (01) ==
LOC: EDUNIT# 22:12 → SED 22:12 → EDBD 22:12 → SED 07-05 12:26
DX: N17.9 Acute kidney failure, unspecified (principal); R45.851 Suicidal ideations; F33.1 Major depressive disorder, recurrent, moderate; F17.200 Nicotine dependence, unspecified, uncomplicated; Z88.2 Allergy status to sulfonamides
CPT/HCPCS: 36415; 80053; 82075; 83690; 83735; 84439; 84443; 85025; 96360; 96361; 99285; J7030; Q0177

== ENCOUNTER 2016-07-23 14:04 | Emergency (ER) | payer OTHER ==
[~2016-07-23] VITALS: Ht 190.5 cm; Wt 77.3 kg
[2016-07-23 14:21] VITALS: BP 140/94; PULSE 93; RESP 16; O2SAT 97
--- NOTE | 2016-07-23 16:44 | ED.REPORT ---
HPI-Psychiatric Illness Date of Service Jul 23, 2016 ED Provider: Carlos Montemayor PA-C Baljeet is a 6-year-old male with a history of hepatitis C, homelessness, alcohol abuse, hypothyroidism who presents to emergency department with a chief complaint of suicidal ideation. He wishes inpatient evaluation or a bed in the crisis center. States he is recently been restarted on his mirtazapine, though he does not feel this fully and affect. He says "I have been contemplating buying a gun in the near future." He does not currently have a gun. Pertinent history of a suicide attempt when he was young which cut his arms. He reports several hospitalizations for depression and that his father committed suicide with a rifle in 1966. He reports heavy drinking but he has not had a drink for 3 or 4 days. Denies other drugs. Incidental complaint of a splinter in his right thumb which has been present for 2 weeks. Review of the VELVET notification ingested this is common symptom complaints for this patient. He has had greater than 5 ED visits in the last year. He is [facility]. He has a history of poor insight, not engaging with therapy and not adhering to treatment. Nursing Notes Stated Complaint: PSYCHIATRIC EVALUATION Chief Complaint: Psychiatric Complaint Nursing Notes Reviewed: Yes Allergies: Coded Allergies: Sulfa (Sulfonamide Antibiotics) (Verified Allergy, Severe, 07/23/16) Scheduled Ascorbic Acid (C-500) 500 Mg Tablet 500 MG PO DAILYWM Clotrimazole-Expunged Drug, Do Not Renew! (Lotrimin 1%-Expunged Drug, Do Not Renew!) 30 Ml Bottle 30 APPL TOP BID Duloxetine-Expunged Drug, Do Not Renew! (Cymbalta-Expunged Drug, Do Not Renew!) 30 Mg Capsule. 30 MG PO DAILY LACTO ACID-Expunged Drug, Do Not Renew! (ACIDOPHILUS-Expunged Drug, Do Not Renew !) 1 Each Tablet 1 EACH PO TIDWM Levothyroxine (Synthroid) 200 Mcg Tablet 200 MCG PO DAILY Levothyroxine-Expunged Drug, Do Not Renew! (Synthroid-Expunged Drug, Do Not Renew!) 100 Mcg Tablet 0.1 MG PO DAILYAC 0.1 MG = 100 MCG Lipase/Amylase/Protease-Expunged, Do Not Tee (Pancrease-Expunged, Do Not Renew! ) 1 Ea Cap 1 EA PO BIDBL Lorazepam-Expunged Drug, Do Not Renew! (Lorazepam-Expunged Drug, Do Not Renew!) 1 Mg Tablet 1 MG PO Q4HP Mirtazapine (Mirtazapine) 30 Mg Tablet 30 MG PO HS Mirtazapine (Mirtazapine) 30 Mg Tablet 30 MG PO HS Multivitamin (Multi-Vitamin Daily) 1 Each Tablet 1 EACH PO DAILY NICOTINE POLAC-Expunged Drug, Do Not Renew! (NICOTINE POLAC-Expunged Drug, Do Not Renew!) 2 Mg Gum 2 MG BC PRN Scheduled PRN Acetaminophen (Acetaminophen) 500 Mg Tablet 500-1,000 MG PO Q6H PRN PRN For Pain Hydroxyzine HCl (HydrOXYzine Hcl) 50 Mg Tablet 50-100 MG PO TID PRN PRN For Anxiety or Agitation Hydroxyzine Kylie-Expunged Drug, Do Not Renew! (Vistaril-Expunged Drug, Do Not Renew!) 50 Mg Capsule 50 MG PO TID PRN PRN Hydroxyzine Pamoate (Vistaril) 50 Mg Capsule 50 MG PO TID PRN PRN For Anxiety Loperamide-Expunged Drug, Do Not Renew! (Imodium-Expunged Drug, Do Not Renew!) 2 Mg Cap 2 MG PO UD PRN PRN Miscellaneous Medications Sodium Chloride-Expunged Drug, Do Not Renew! (Saline Nasal [place]-Expunged Drug, Do Not Tee) 45 Ml [place] 45 ML NS General Time Seen by MD: 16:13 Chief Complaint Suicidal ideation Risk-Psychiatric Illness Suicide Risk Stratification Suicide Risk Factors - Adult: : Alcohol use: Family Hx of Suicide: Previous attempt: Prior psych admissionNo: Access to firearms, Close associate suicide, Substance abuse RF Statements: Risk factors reviewed Past Medical History Past Medical History Notes: Frequent ED visits for suicidal ideations and homelessness. Frequently seen at [facility] as well, with prior diagnosis of malingering Past Medical History Depression with suicidal ideations - with prior hospitalizations Generalized anxiety Alcohol abuse Duodenal ulcer Schizophrenia Arthritis Hypothyroidism hepatitis C Reports: Mental illness Reports: Depression, Thyroid disease Past Surgical History ulcer repair Smoking History Current Every Day Smoker Social History Alcohol Use: >5 per day Drug Use: Denies drug use Other Social History: Poor social support, Homeless Occupation , homeless 06/25/2016 Ambulatory Status Independent Review of Systems General: Denies fever, chills, malaise. HEENT: Admits congestion, headache, sore throat. Respiratory: Denies dyspnea, cough, shortness of breath, wheezing. Cardiovascular: Denies chest pain, palpitations. Gastrointestinal: Denies vomiting, diarrhea, abdominal pain. Genitourinary: Denies frequency, urgency, dysuria, hematuria. Otherwise as noted in HPI. Physical Exam General: Well appearing, well developed, well nourished, no acute distress. Disheveled, wearing sunglasses. Has a great deal of luggage with him. Head: Atraumatic, normocephalic. No mastoid tenderness. Eyes: No scleral icterus or injection. No discharge. PERRL. Vision grossly intact. Ears: Pinna and tragus nontender with manipulation. External auditory canal patent, atraumatic and without discharge. Tympanic membrane marinelli, shiny and translucent without fluid, bulging, retraction or perforation. Hearing grossly intact. Nose: Symmetrical, nares patent without discharge. No frontal or maxillary sinus tenderness. Mouth/pharynx: normal dentition, mucus membranes moist. Tonsils 2+ and symmetrical, uvula midline. Pharynx noninjected, no cobblestoning or discharge. Voice clear. Neck: No tenderness or lymphadenopathy. Trachea midline. Respiratory: Regular rate and rhythm. Breath sounds present, clear to auscultation and equal bilaterally. No respiratory distress. No increased work of breathing, speaks in complete sentences. Cardiovascular: Regular rate and rhythm, without murmur, gallop or rub. No pedal edema. Gastrointestinal: Abdomen flat and non-tender without guarding or rebound. Bowel sounds normoactive. Skin: Warm and dry. Right thumb. 1/2 cm area of swelling and tenderness surrounding a apparent foreign body. No redness, discharge. Neurological: Grossly nonfocal. Psychological: Alert and oriented. Speech appropriate, linear and logical. Behavior appropriate. Initial Vital Signs Vital Signs (First) Date Time Temp Pulse Resp B/P Pulse Ox O2 Delivery O2 Flow Rate FiO2 07/23/16 14:21 36.2 93 16 140/94 97 Room Air Initial VS: Reviewed, Vital signs normal Interpretation & Diagnostics Lab Results Interpretation Test 07/23/16 17:51 Hold Urine Received (Received) Procedures Procedure Notes: Removal of a splinter in the right thumb. Skin prepped with alcohol. Anesthetized the area with 0.5 mL lidocaine. Shaved away callous overlying embedded foreign body and a small, 5 mm splinter was removed. Patient tolerated the procedure well, no complications, dressed with Band-Aid. Re-Eval/Medical Decision Med Decision/Clinical Course 60-year-old male with history of listlessness as well as 50+ ED visits in the last 12 months presents for suicidal ideation. Patient states "I have been contemplating going and getting a gun in the near future." He states that his level of suicidality is 4/10. Review of records suggests that this is a common complaint. She has a history of noncompliance with treatment, and participated in treatment when he is placed in a residential setting. This point the VAs recommendation is that he not be admitted for psychiatric complaints per VELVET. Patient's history and physical revealed no medical instability. He appears to be sober. The patient points out a splinter in his right thumb which he states present for 2 weeks. This is removed. Phyllis Correa MSW met with the patient and feels that he is at his baseline. We see no indication that he is acutely suicidal, though he does have several risk factors. He is not thought to be a candidate for admission, and there are no crisis respite beds available for him tonight. I discussed this with the patient. He is disappointed but amenable to being discharged to home. He requests refill of his Tylenol hydroxyzine, and thyroid medication. I provide refills of Tylenol hydroxyzine but not thyroid medication. I explained that this is a condition that should be followed by primary care provider. Provide referral for primary care follow-up, advised to follow up with his mental health provider and [facility]. Provided emergency return precautions. Discharge & Departure Impression: Primary Impression: Suicidal ideations Additional Impression: Splinter in skin )( Condition at Discharge: No danger to self, No danger to others Disposition: Home Discharge Condition All VS Reviewed: Yes Condition: Stable Additional Instructions: Evaluation for suicidal ideation in the emergency department. I was clear to us that you do suffer from depression, at this time it appears reasonable to manage this on an outpatient basis. Inpatient psychiatric treatment is not appropriate at this time. Please follow up with the [facility] regarding your depression medication. I will provide a referral for Follow-up regarding your other medications. Return to emergency department for new or worsening symptoms including chest pain, difficulty breathing or a compulsion to act upon suicidal ideation. In regard to secondary complaint of a thumb splinter, we were able to successfully remove it.. There is at this time no indication of infection. I do not believe this should require antibiotics or follow-up. Return to emergency department if he develops signs of infection including redness, swelling, the appearance of pus. I have also provided this prescription for Tylenol and a small amount of hydroxyzine at your request. Referrals: [facility] EDSupervising Provider for APC: Quan Pham Seth PA-C Jul 23, 2016 16:44
[2016-07-23] MEDS ORDERED: HYDR50TA76 PO (19:58)
[2016-07-23] MEDS ORDERED: ACET-171 PO (19:58)
[2016-07-23 20:16] VITALS: PULSE 79; RESP 16; O2SAT 97
== END 2016-07-23 20:18 | disposition home or self-care (01) ==
LOC: SED 14:04
DX: R45.851 Suicidal ideations (principal); S60.351A Superficial foreign body of right thumb, initial encounter; W45.8XXA Other foreign body or object entering through skin, initial encounter; Y93.89 Activity, other specified; Y92.89 Other specified places as the place of occurrence of the external cause; Y99.8 Other external cause status; F20.9 Schizophrenia, unspecified; E03.9 Hypothyroidism, unspecified; F17.200 Nicotine dependence, unspecified, uncomplicated; Z59.0 Homelessness; Z88.2 Allergy status to sulfonamides

== ENCOUNTER 2016-11-14 16:33 | Emergency (ER) | payer OTHER ==
[~2016-11-14] VITALS: Ht 182.9 cm; Wt 77.0 kg
[~2016-11-14 16:33] MED LIST changes: +ACET-171 PO; +HYDR50TA76 PO
[2016-11-14 16:48] VITALS: BP 179/84; PULSE 15; RESP 15; O2SAT 100
--- NOTE | 2016-11-14 18:34 | ED.REPORT ---
HPI-General Illness Date of Service Nov 14, 2016 ED Provider: Everton Murdock MD The patient is a 61-year-old male with a history of hepatitis C, depression, homelessness, alcohol abuse, hypothyroidism who presents to emergency department c/o suicidal ideation. Pt states he is trying to get to Crisis [facility] for alcohol detox and states that he was told to endorse suicidal ideations in order to get into crisis Center. He was clean previously but started drinking again. Pt wants to quit alcohol. He stated to nursing staff that he was suicidal with a plan however his plan changes on my exam currently. I asked him if he was considering killing himself this evening, and he states that he was just saying this to try to get into a bed tonight. Pt drank alcohol today. Pertinent history of a suicide attempt, several hospitalizations for depression and his father committed suicide with a rifle in 1966. He denies any other complaints at this time, including no fever, chest pain, shortness of breath, vision changes, headache, abdominal pain, nausea, vomiting, diarrhea, blood in urine or stool, unilateral weakness or numbness, or other complaints. Denies homicidal ideations or hallucinations Nursing Notes Stated Complaint: MENTAL HEALTH EVAL Chief Complaint: Psychiatric Complaint Nursing Notes Reviewed: Yes Allergies: Coded Allergies: Sulfa (Sulfonamide Antibiotics) (Verified Allergy, Severe, 11/14/16) Scheduled Ascorbic Acid (C-500) 500 Mg Tablet 500 MG PO DAILYWM Clotrimazole-Expunged Drug, Do Not Renew! (Lotrimin 1%-Expunged Drug, Do Not Renew!) 30 Ml Bottle 30 APPL TOP BID Duloxetine-Expunged Drug, Do Not Renew! (Cymbalta-Expunged Drug, Do Not Renew!) 30 Mg Capsule.dr 30 MG PO DAILY LACTO ACID-Expunged Drug, Do Not Renew! (ACIDOPHILUS-Expunged Drug, Do Not Renew !) 1 Each Tablet 1 EACH PO TIDWM Levothyroxine (Synthroid) 200 Mcg Tablet 200 MCG PO DAILY Levothyroxine-Expunged Drug, Do Not Renew! (Synthroid-Expunged Drug, Do Not Renew!) 100 Mcg Tablet 0.1 MG PO DAILYAC 0.1 MG = 100 MCG Lipase/Amylase/Protease-Expunged, Do Not Tee (Pancrease-Expunged, Do Not Renew! ) 1 Ea Cap 1 EA PO BIDBL Lorazepam-Expunged Drug, Do Not Renew! (Lorazepam-Expunged Drug, Do Not Renew!) 1 Mg Tablet 1 MG PO Q4HP Mirtazapine (Mirtazapine) 30 Mg Tablet 30 MG PO HS Mirtazapine (Mirtazapine) 30 Mg Tablet 30 MG PO HS Multivitamin (Multi-Vitamin Daily) 1 Each Tablet 1 EACH PO DAILY NICOTINE POLAC-Expunged Drug, Do Not Renew! (NICOTINE POLAC-Expunged Drug, Do Not Renew!) 2 Mg Gum 2 MG BC PRN Scheduled PRN Acetaminophen (Acetaminophen) 500 Mg Tablet 500-1,000 MG PO Q6H PRN PRN For Pain Hydroxyzine HCl (HydrOXYzine Hcl) 50 Mg Tablet 50-100 MG PO TID PRN PRN For Anxiety or Agitation Hydroxyzine Kylie-Expunged Drug, Do Not Renew! (Vistaril-Expunged Drug, Do Not Renew!) 50 Mg Capsule 50 MG PO TID PRN PRN Hydroxyzine Pamoate (Vistaril) 50 Mg Capsule 50 MG PO TID PRN PRN For Anxiety Loperamide-Expunged Drug, Do Not Renew! (Imodium-Expunged Drug, Do Not Renew!) 2 Mg Cap 2 MG PO UD PRN PRN Miscellaneous Medications Sodium Chloride-Expunged Drug, Do Not Renew! (Saline Nasal [place]-Expunged Drug, Do Not Tee) 45 Ml [place] 45 ML NS General Time Seen by MD: 18:30 Chief Complaint Other (suicidal ideation) Hx Obtained From: Patient Arrived By: Walk-in Sudden in Onset?: Yes Onset Occurred: Just prior to arrival Symptom Duration: Since onset Severity: Current: No pain currently Pertinent Negative: Pt denies other symptoms Recent Healthcare: No recent doctor visit Similar Sx Previous: Yes Past Medical History Past Medical History Notes: Frequent ED visits for suicidal ideations and homelessness. Frequently seen at [facility] as well, with prior diagnosis of malingering Past Medical History Depression with suicidal ideations - with prior hospitalizations Generalized anxiety Alcohol abuse Duodenal ulcer Schizophrenia Arthritis Hypothyroidism hepatitis C Reports: Mental illness Reports: Depression, Thyroid disease Past Surgical History ulcer repair Smoking History Current Every Day Smoker Social History Alcohol Use: >5 per day Drug Use: Denies drug use Other Social History: Poor social support, Homeless Occupation [place], homeless 06/25/2016 Ambulatory Status Independent Review of Systems Full Review of Systems Respiratory: Denies: Shortness of breath Cardiovascular: Denies: Chest pain GI: Denies: Diarrhea, Nausea, Vomiting Male: Denies Dysuria Psychiatric: Reports: Depression, Suicidal ideation, Denies: Delusional, Hallucinations, auditory, Hallucinations, visual, Homicidal ideation, Hostile Complete sys rev & neg: except as marked. Physical Exam Nursing note and vitals reviewed. Constitutional: Disheveled male sitting in a chair, well-appearing. Not diaphoretic. Head: Normocephalic and atraumatic. Mouth/Throat: Oropharynx is clear and moist. No oropharyngeal exudate. Eyes: EOM are normal. Pupils are equal, round, and reactive to light. Neck: Supple, no tracheal deviation. Cardiovascular: Normal rate, regular rhythm. Pulmonary/Chest: Effort normal and breath sounds normal. No respiratory distress. Abdominal: Soft. No distension. There is no tenderness, rebound, or guarding. Bowel sounds present. Musculoskeletal: Range of motion grossly intact, moving all extremities. No edema or tenderness appreciated. Neurological: AOx3. Grossly nonfocal exam. Strength and sensation intact and equal to bilateral upper and lower extremities. Skin: Warm and dry, no rashes or pallor appreciated. Psychiatric: No active suicidal ideations upon our interview, no homicidal ideations, no auditory hallucinations, no visual hallucinations Vital Signs Vital Signs Date Time Temp Pulse Resp B/P Pulse Ox O2 Delivery O2 Flow Rate FiO2 11/14/16 16:48 36.8 15 15 179/84 100 Room Air Initial VS: Reviewed Interpretation & Diagnostics Lab Results Interpretation Result Diagram: 11/14/16192911/14/161929 Test 11/14/16 19:30 White Blood Count 13.5th/mm3 (3.8-10.1) Red Blood Count 3.90mil/mm3 (4.40-5.80) Hemoglobin 11.7g/dL (13.8-17.2) Hematocrit 33.7% (41.0-50.0) Mean Corpuscular Volume 86.4fL (81-100) Mean Corpuscular Hemoglobin 30.0pg (27.0-35.0) Mean Corpuscular Hemoglobin Concent 34.7% (32.0-37.0) Red Cell Distribution Width 12.4% (12.3-15.4) Platelet Count 301bil/L (150-400) Neutrophils (%) (Auto) 71.1% (40-74) Lymphocytes (%) (Auto) 21.9% (14-46) Monocytes (%) (Auto) 5.6% (4-12) Eosinophils (%) (Auto) 0.9% (0-5) Basophils (%) (Auto) 0.3% (0-3) Sodium Level 128mEq/L (134-144) Potassium Level 4.3mEq/L (3.5-5.2) Chloride Level 91mEq/L (97-108) Carbon Dioxide Level 22mmol/L (18-29) Blood Urea Nitrogen 6mg/dL (8-27) Creatinine 0.52mg/dL (0.76-1.27) Estimat Glomerular Filtration Rate 172mL/min (>59) Glucose Level 88mg/dL (60-99) Calcium Level 9.5mg/dL (8.5-10.1) Total Bilirubin 0.3mg/dL (0.0-1.2) Aspartate Amino Transf (AST/SGOT) 23U/L (0-50) Alanine Aminotransferase (ALT/SGPT) 22U/L (0-44) Alkaline Phosphatase 63U/L (25-160) Total Protein 8.0g/dL (6.4-8.4) Albumin 4.3g/dL (3.4-5.0) Thyroid Stimulating Hormone (TSH) 0.078uIU/mL (0.450-4.500) Thyroxine (T4) 7.4ug/dL (4.7-13.3) Hold Ma Top Tube Received (Received) Lab Results Interpretation: WBC 13.5 but no shift T4: 7.4 within normal limits TSH: 0.078 Sodium: 128 Hemoglobin: 7.7 no other symptoms Re-Eval/Medical Decision Med Decision/Clinical Course In summary, 61-year-old male with a long-standing psychiatric history including multiple visits for suicidal ideations presenting to the ED initially stating that he would like to kill himself, however admitting after the fact that he was told to say this to get a bed at the crisis center and not actively suicidal at this time. Differential includes metabolic abnormality, alcohol intoxication, drug ingestion, acute exacerbation of underlying psychiatric illness. Initial laboratory studies notable for a white blood cell count of 13.5, but no left shift, TSH of 0.078 but with T4 of 7.4, sodium of 128 (only mildly decreased from previous). CBC stable from previous. Plan to have social science professor evaluate the patient for appropriate placement, however subsequently notified the patient eloped from the emergency department without warning. Not able to discuss return precautions or need for follow-up with the patient. Time of Eval: 21:30 Re-Evaluation/Progress Note: Consult w/ FIRE ASSISTANT. Plan to keep pt overnight for observation. Time of Eval: 23:46 Re-Evaluation/Progress Note: Pt eloped. Discharge & Departure Primary Impression: Suicidal ideations Additional Impression: Alcohol abuse Disposition: AGAINST MEDICAL ADVICE (patient eloped) Discharge Condition All VS Reviewed: Yes Condition: No Change Referrals: NOPCP (PCP) [facility] Scribe Attestation Portion of this note were transcribed by Anna Adhikari. Dr. Mathieu Schaefer, personally performed the history, physical exam, and medical decision-making: I reviewed and confirmed the accuracy for the information in the transcribed note. Signed by: sherif Godinez, 11/14/16 2100 copies to: [facility] ; Crisis Respite Everton Murdock MD Nov 14, 2016 18:34 Anna Adhikari Nov 14, 2016 18:57 Everton Murdock MD Nov 14, 2016 18:34 Anna Adhikari Nov 14, 2016 18:57 Scribe Attestation Portion of this note were transcribed by Anna Adhikari. Dr. Mathieu Schaefer, personally performed the history, physical exam, and medical decision-making: I reviewed and confirmed the accuracy for the information in the transcribed note. Signed by: sherif Godinez, 11/14/16 2100 copies to: [facility] ; Crisis Respite Everton Murdock MD Nov 14, 2016 18:34 Anna Adhikari Nov 14, 2016 18:57
[2016-11-14 19:53] LABS: BASOPHILS % (AUTO) 0.3 % (0-3); EOSINOPHILS % (AUTO) 0.9 % (0-5); MONOCYTES % (AUTO) 5.6 % (4-12); Mean Corpuscular Volume 86.4 fL (81-100); NEUTROPHILS % (AUTO) 71.1 % (40-74); Platelet Count 301 bil/L (150-400)
== END 2016-11-14 23:39 | disposition left against medical advice (07) ==
LOC: SED 16:33
DX: R45.851 Suicidal ideations (principal); F10.10 Alcohol abuse, uncomplicated; F32.9 Major depressive disorder, single episode, unspecified; F41.9 Anxiety disorder, unspecified; F20.9 Schizophrenia, unspecified; B19.20 Unspecified viral hepatitis C without hepatic coma; E03.9 Hypothyroidism, unspecified; F17.200 Nicotine dependence, unspecified, uncomplicated; Z59.0 Homelessness; Z86.19 Personal history of other infectious and parasitic diseases; Z88.2 Allergy status to sulfonamides

== ENCOUNTER 2016-11-16 18:28 | Emergency (ER) | payer OTHER ==
[~2016-11-16] VITALS: Ht 190.5 cm; Wt 79.5 kg
[2016-11-16 18:47] VITALS: BP 130/80; PULSE 92; RESP 17; O2SAT 97
--- NOTE | 2016-11-16 21:04 | ED.REPORT ---
HPI-Psychiatric Illness Date of Service Nov 16, 2016 ED Provider: Quan Pham DO Pt is a 61 year old male with a history of multiple hospital visits, depression , and hypothyroidism who presents to the ED complaining of suicidal ideations. He c/o associated depression. He denies any other symptoms. The pt reports that he is "entertaining thought of purchasing a hand gun and doing harm to self." He states that he has been off his anti-depressants and thyroid medication for over 1 week. Nursing Notes Stated Complaint: PSYCH EVAL Chief Complaint: Psychiatric Complaint Nursing Notes Reviewed: Yes Allergies: Coded Allergies: Sulfa (Sulfonamide Antibiotics) (Verified Allergy, Severe, 11/14/16) Scheduled Ascorbic Acid (C-500) 500 Mg Tablet 500 MG PO DAILYWM Clotrimazole-Expunged Drug, Do Not Renew! (Lotrimin 1%-Expunged Drug, Do Not Renew!) 30 Ml Bottle 30 APPL TOP BID Duloxetine-Expunged Drug, Do Not Renew! (Cymbalta-Expunged Drug, Do Not Renew!) 30 Mg Capsule.dr 30 MG PO DAILY LACTO ACID-Expunged Drug, Do Not Renew! (ACIDOPHILUS-Expunged Drug, Do Not Renew !) 1 Each Tablet 1 EACH PO TIDWM Levothyroxine (Levothyroxine) 100 Mcg Tablet 100 MCG PO QAM Lipase/Amylase/Protease-Expunged, Do Not Tee (Pancrease-Expunged, Do Not Renew! ) 1 Ea Cap 1 EA PO BIDBL Lorazepam-Expunged Drug, Do Not Renew! (Lorazepam-Expunged Drug, Do Not Renew!) 1 Mg Tablet 1 MG PO Q4HP Mirtazapine (Mirtazapine) 30 Mg Tablet 30 MG PO HS Mirtazapine (Mirtazapine) 30 Mg Tablet 30 MG PO HS Multivitamin (Multi-Vitamin Daily) 1 Each Tablet 1 EACH PO DAILY NICOTINE POLAC-Expunged Drug, Do Not Renew! (NICOTINE POLAC-Expunged Drug, Do Not Renew!) 2 Mg Gum 2 MG BC PRN Scheduled PRN Acetaminophen (Acetaminophen) 500 Mg Tablet 500-1,000 MG PO Q6H PRN PRN For Pain Hydroxyzine HCl (HydrOXYzine Hcl) 50 Mg Tablet 50-100 MG PO TID PRN PRN For Anxiety or Agitation Hydroxyzine Kylie-Expunged Drug, Do Not Renew! (Vistaril-Expunged Drug, Do Not Renew!) 50 Mg Capsule 50 MG PO TID PRN PRN Hydroxyzine Pamoate (Vistaril) 50 Mg Capsule 50 MG PO TID PRN PRN For Anxiety Loperamide-Expunged Drug, Do Not Renew! (Imodium-Expunged Drug, Do Not Renew!) 2 Mg Cap 2 MG PO UD PRN PRN Miscellaneous Medications Sodium Chloride-Expunged Drug, Do Not Renew! (Saline Nasal [place]-Expunged Drug, Do Not Tee) 45 Ml [place] 45 ML NS General Time Seen by MD: 21:04 Chief Complaint Suicidal ideation Hx Obtained From: Patient Arrived By: Walk-in Onset Occurred: Onset unknown Symptom Duration: Duration unknown Severity: Current: No pain currently Severity: Maximum: No pain Recent Healthcare: Recent doctor visit Similar Sx Previous: Yes Risk-Psychiatric Illness Suicide Risk Stratification Suicide Risk Factors - Adult: : Previous attempt: Prior psych admissionNo: Access to firearms, Alcohol use, Close associate suicide RF Statements: Risk factors reviewed Past Medical History Past Medical History Notes: Frequent ED visits for suicidal ideations and homelessness. Frequently seen at [facility] as well, with prior diagnosis of malingering Past Medical History Depression with suicidal ideations - with prior hospitalizations Generalized anxiety Alcohol abuse Duodenal ulcer Schizophrenia Arthritis Hypothyroidism hepatitis C Reports: Mental illness Reports: Depression, Thyroid disease Past Surgical History ulcer repair Smoking History Current Every Day Smoker Social History Alcohol Use: >5 per day Drug Use: Denies drug use Other Social History: Poor social support, Homeless Occup[employer], homeless 06/25/2016 Ambulatory Status Independent Review of Systems Constitutional: Denies: Fever Respiratory: Denies: Non-productive cough, Shortness of breath Psychiatric: Reports: Depression, Suicidal ideation Complete sys rev & neg: except as marked. Physical Exam Initial Vital Signs Vital Signs (First) Date Time Temp Pulse Resp B/P Pulse Ox O2 Delivery O2 Flow Rate FiO2 11/16/16 18:47 36.8 92 17 130/80 97 Room Air Initial VS: Reviewed Head / Eyes: Atraumatic, Normocephalic, PERRL Neck: Supple, Full range of motion Respiratory: Breath sounds normal, Clear to auscultation, No respiratory distress Cardiovascular: Regular rate & rhythm, Heart sounds normal, Intact distal pulses Abdomen / GI: Soft, Non-tender Extremities: Vascular intact, Neuro intact Skin: Warm, Dry, No cyanosis General/Constitutional: Awake, Alert, Cooperative Neurologic: Oriented X3, Speech NL, No motor deficits, No sensory deficits Psychiatric: Not suicidal, Not homicidal Abnormal Mood/Affect: Positive: Flat affect Re-Eval/Medical Decision Med Decision/Clinical Course After talking things over with our social science manager and and having nicotine replacement gum, Mr. Valadez felt better. He was no longer suicidal. He did request that we refill his medications for a few days. He assured me he is not going to overdose. He also showed me his menisci his doctor this week. At discharge she is awake alert oriented 4. His speech is rapid and articulate. He had no suicidal ideations. He had no homicidal ideations. He was comfortable being discharged home. Source of Hx: Old records Re-Evaluation/Progress : Time of Eval: 22:00 )( Re-Eval Psychiatric: No suicidal ideation Re-Evaluation/Progress Note: Pt rechecked. He would like his medication and to be discharged. Informed pt of plan for discharge. Pt understands and agrees with plan for discharge. F/U instructions and RTER warnings given. All questions addressed. Counseled Regarding: Diagnosis, Need for follow-up, When/why to return to ED Discharge & Departure Impression: Primary Impression: Acute situational disturbance Disposition: Home Discharge Condition All VS Reviewed: Yes Condition: Stable Patient Instructions: Brief Psychotic Disorder (ED) Additional Instructions: Stay off your medications. Follow up with your primary care provider on Friday for a refill of your medications. Follow up with your counselor or compass. Return to the Emergency Department with any new or worsening symptoms. Referrals: [facility] (PCP) [facility] Scribe Attestation Portions of this note were transcribed by Megan Myers. I, Dr. Pham personally performed the history, physical exam and medical decision-making; I reviewed and confirmed the accuracy of the information in the transcribed note. Signed by : Krystina Ying, 11/16/16 and 23:30. copies to: [facility] Quan Pham DO Nov 16, 2016 21:04 Megan March Nov 16, 2016 21:43
[2016-11-16] MEDS ORDERED: LEVO100T6 PO (22:04)
[2016-11-16 22:34] VITALS: BP 151/86; PULSE 75; RESP 20; O2SAT 97
== END 2016-11-16 22:35 | disposition home or self-care (01) ==
LOC: SED 18:28
DX: F43.0 Acute stress reaction (principal); E03.9 Hypothyroidism, unspecified; F20.9 Schizophrenia, unspecified; F32.9 Major depressive disorder, single episode, unspecified; F17.200 Nicotine dependence, unspecified, uncomplicated; Z88.2 Allergy status to sulfonamides; Z59.0 Homelessness